=== PATIENT | male | born 1980 | race Caucasian/White ===

== ENCOUNTER 2017-06-25 11:08 | Emergency (ER) | payer OTHER ==
[~2017-06-25] VITALS: Ht 185.4 cm; Wt 95.2 kg
== END 2017-06-25 14:01 | disposition home or self-care (01) ==
LOC: CED 11:08 → EDBD 12:06 → CED 14:01
DX: T40.1X1A Poisoning by heroin, accidental (unintentional), initial encounter (principal); F32.9 Major depressive disorder, single episode, unspecified
CPT/HCPCS: 99285